=== PATIENT | female | born 1990 | race Caucasian/White ===

== ENCOUNTER 2018-11-22 16:50 | Day surgery (SDC) | payer OTHER ==
[~2018-11-22] VITALS: Ht 157.5 cm; Wt 63.0 kg
[2018-11-22 13:15] VITALS: BP 126/83
[2018-11-22 13:22] LABS: HCG UR SG 1.012 (1.003-1.030)
[2018-11-22] MEDS: MEPERIDINE/PF 25MG/0.5ML IVPush PRN ×2 (14:51→15:30)
[2018-11-22] MEDS: HYDROmorphone 2 MG/ML, 1ML IVPush PRN ×3 (14:56→15:26)
[2018-11-22] MEDS: FENTANYL PF 100 MCG/2ML IV PRN ×2 (15:03→15:08)
[~2018-11-22 16:50] MED LIST: ACETAMINOPHEN 325 MG TABLET PO PRN; ACETAMINOPHEN 650 MG/20.3 ML UDC ONE; BUPIVACAINE/PF-EPI 0.5% 1:200K ONE; CEFAZOLIN 1,000 MG ONE; DEXAMETHASONE 4 MG/ML, 1ML ONE; FENTANYL PF 100 MCG/2ML ONE; FENTANYL PF 250 MCG/5ML ONE; GABAPENTIN 300 MG CAPSULE ONE; HALOPERIDOL 5 MG/ML IV PRN; HYDROmorphone 1 MG/ML, 1ML ONE; LACTATED RINGERS 1,000 ML IV SCH; LIDOCAINE 1%-EPI 1:100K, 30ML ONE; LIDOCAINE-MPF 1%, 2ML INFIL ONE; MEPERIDINE/PF 25MG/ML,1ML ONE; MIDAZOLAM 1 MG/ML, 2ML ONE; ONDANSETRON 2MG/ML, 2ML ONE; OXYcodone 5 MG/5 ML ORAL.SOL UDC ONE; OXYcodone 5 MG/5 ML ORAL.SOL UDC PO PRN; PROMETHAZINE 25 MG/ML, 1ML IV PRN; PROPOFOL 10 MG/ML, 20ML ONE; ROPIvacaine/PF 0.5%, 30 ML ONE; SCOPOLAMINE PATCH, 1.5MG PATCH.TD72 TD ONE
== END 2018-11-22 16:55 | disposition home or self-care (01) ==
LOC: OUT 16:50
PROVIDERS: ATTEND Orthopaedic Surgery
DX: S83.511A Sprain of anterior cruciate ligament of right knee, initial encounter (principal); S83.231A Complex tear of medial meniscus, current injury, right knee, initial encounter; S83.271A Complex tear of lateral meniscus, current injury, right knee, initial encounter; M94.261 Chondromalacia, right knee; M65.861 Other synovitis and tenosynovitis, right lower leg; X58.XXXA Exposure to other specified factors, initial encounter; Y93.89 Activity, other specified; Y92.89 Other specified places as the place of occurrence of the external cause; Y99.8 Other external cause status
CPT/HCPCS: 29880; 29888; 64447; 81025; C1713; C1762; J0690; J1100; J1170; J2175; J2250; J2405; J2704; J2795; J3010; J3490